=== PATIENT | male | born 1970 | race African-American/Black ===

== ENCOUNTER 2018-07-14 04:03 | Emergency (ER) | payer BC ==
[~2018-07-14] VITALS: Ht 172.7 cm; Wt 109.1 kg
[2018-07-14 04:09] VITALS: TEMP 97.5
[2018-07-14 04:44] LABS: BASO % 0.4 % (0.0-2.0); EOS # 0.2 (0.0-0.7); GRAN % 70.2 % (42.2-75.2); HEMATOCRIT 39.1 % (42.0-52.0); HEMOGLOBIN 12.9 g/dl (13.5-18.0); LYMPH % 19.7 % (20.0-51.0); MEAN CELL VOLUME 85 fl (80.0-100.0); MEAN CORPUSCULAR HEMOGLOBIN 28 pg (27.0-31.0); MEAN CORPUSCULAR HGB CONC 33 g/dl (33.0-37.0); MEAN PLATELET VOLUME 9.9 fl (7.4-10.4); MONO # 0.8 (0.1-0.6); MONO % 7.5 % (1.7-9.3); PLATELET COUNT 219 K/mm3 (130-400); RED BLOOD COUNT 4.58 M/mm3 (4.20-5.60); REDCELL DISTRIBUTION WIDTH-CV 13.6 % (11.5-14.5)
[2018-07-14 05:27] LABS: ALBUMIN 3.7 gm/dL (3.5-5.0); BILIRUBIN,TOTAL 0.5 mg/dL (0.0-1.0); CALCIUM 8.6 mg/dL (8.4-10.2); CREATININE, serum 0.89 mg/dL (0.66-1.25); POTASSIUM 3.6 mmol/L (3.4-5.0); TOTAL PROTEIN 7.2 gm/dL (6.4-8.2); URIC ACID 4.1 mg/dL (3.5-8.5)
[2018-07-14 05:28] LABS: ERYTHROCYTE SEDIMENTATION RATE 27 mm/hr (0-15)
[2018-07-14 05:39] LABS: C-REACTIVE PROTEIN 15.9 mg/dL (0.0-0.9)
[2018-07-14 06:02] VITALS: BP 122/68; PULSE 82
[2018-07-15] MEDS ORDERED: AMOXICILLIN 8751 TAB PO ×2 (15:52→15:56)
[2018-07-15] MEDS ORDERED: NORCO 325 MG-51 TAB PO ×2 (15:52→15:56)
== END 2018-07-14 06:03 | disposition home or self-care (01) ==
LOC: COL.ER 04:03
PROVIDERS: Emergency Medicine
DX: M79.89 Other specified soft tissue disorders (principal); M79.671 Pain in right foot

== ENCOUNTER → 2018-07-15 | Emergency (ER) | payer BC ==
[~2018-07-15] VITALS: Ht 172.7 cm; Wt 109.1 kg
[~2018-07-15] MED LIST: AMOXICILLIN 8751 TAB PO; NORCO 325 MG-51 TAB PO
[2018-07-15 14:37] VITALS: TEMP 98.5
[2018-07-15 16:30] VITALS: BP 137/76; PULSE 75
== END ==
LOC: COL.ER 14:32
DX: L02.611 Cutaneous abscess of right foot (principal); L03.115 Cellulitis of right lower limb

== ENCOUNTER → 2018-08-03 | Outpatient (CLI) | payer BC | LOC: ZCOL.LAB 13:06 | DX: L97.519 Non-pressure chronic ulcer of other part of right foot with unspecified severity (principal); L03.115 Cellulitis of right lower limb ==